=== PATIENT | female | born 1970 | race Two or more races ===

== ENCOUNTER 2017-02-27 08:06 | Day surgery (SDC) | payer BC, MEDICAID ==
[2017-02-26 16:42] LABS: CHLORIDE,CL 106 mmol/L (98-110); SODIUM,NA 139 mmol/L (136-146)
[~2017-02-27 08:06] MED LIST: Fluorescein 5 ML Vial ONE; Octyl 2-Cyanoacrylate 1 Tube ONE; Sodium Chloride 0.9% 10 ML Syringe FLUSH PRN; Sodium Chloride 0.9% 2.5 ML Syringe FLUSH PRN; ceFAZolin 2 GM in Premix Bag 1 BAG IV ONE
[2017-02-27] MEDS: Lactated Ringers 1,000 ML IV SCH ×3 (08:24→22:14)
[2017-02-27] MEDS ORDERED: Propofol 200 MG/20 ML SDV ONE ×2 (08:44→11:44)
[2017-02-27] MEDS ORDERED: fentaNYL 100 MCG/2 ML SDV ONE (08:44)
[2017-02-27] MEDS ORDERED: Lidocaine 2% 5 ML SDV ONE (08:44)
[2017-02-27] MEDS ORDERED: Midazolam 1 MG/ML 2 ML SDV ONE (08:44)
[2017-02-27] MEDS ORDERED: Scopolamine 1.5 MG Transdermal Patch TRDERM PRN (09:01)
--- NOTE | 2017-02-27 09:02 | PCM.PREANE ---
Preanesthetic Assessment - Anesthesia/Transfusion/Family Hx Anesthesia History: Prior Anesthesia Reaction Type of Anesthesia Reaction: Excessive Nausea/Vomiting Other Type of Anesthesia Reaction Comment: "my mother has problems with N&V post anesthesia" Transfusion History: No Prior Transfusion(s) - Review of Systems General: No Symptoms Pulmonary: No Symptoms Cardiovascular: No Symptoms Gastrointestinal: No Symptoms Neurological: No Symptoms Other: Reports: None - Physical Assessment NPO Status Date: 02/26/17 NPO Status Time: 18:30 O2 Sat by Pulse Oximetry: 98 Respiratory Rate: 16 Vital Signs: Last Vital Signs Temp 36.1 C 02/27/17 08:23 Pulse 54 L 02/27/17 08:23 Resp 16 02/27/17 08:23 BP 138/70 02/27/17 08:23 Pulse Ox 98 02/27/17 08:23 Height: 1.6 m Weight: 84.822 kg ASA Class: 1 Mental Status: Alert & Oriented x3 Airway Class: Mallampati = 1 Dentition: Reports: Normal Dentition ROM/Head Extension: Full Lungs: Clear to Auscultation, Normal Respiratory Effort Cardiovascular: Regular Rate, Regular Rhythm - Lab Values: Laboratory Last Values WBC 5.24 K/uL (4.0-11.0) 02/26/17 16:00 RBC 4.12 M/uL (4.30-5.90) L 02/26/17 16:00 Hgb 12.7 g/dL (12.0-16.0) 02/26/17 16:00 Hct 38.3 % (36.0-46.0) 02/26/17 16:00 MCV 93.0 fL (80.0-98.0) 02/26/17 16:00 MCH 30.8 pg (27.0-32.0) 02/26/17 16:00 MCHC 33.2 g/dL (31.0-37.0) 02/26/17 16:00 RDW Std Deviation 50.6 fl (28.0-62.0) 02/26/17 16:00 RDW Coeff of Cuate 15 % (11.0-15.0) 02/26/17 16:00 Plt Count 256 K/uL (150-400) 02/26/17 16:00 MPV 10.90 fL (7.40-12.00) 02/26/17 16:00 Nucleated RBC % 0.0 /100WBC 02/26/17 16:00 Nucleated RBCs # 0 K/uL 02/26/17 16:00 Sodium 139 mmol/L (136-146) 02/26/17 16:00 Potassium 4.1 mmol/L (3.5-5.1) 02/26/17 16:00 Chloride 106 mmol/L (98-110) 02/26/17 16:00 Carbon Dioxide 28 mmol/L (21-31) 02/26/17 16:00 BUN 13 mg/dL (6.0-23.0) 02/26/17 16:00 Creatinine 0.7 mg/dL (0.6-1.5) 02/26/17 16:00 Est Cr Clr Drug Dosing 83.95 mL/min 02/26/17 16:00 Estimated GFR (MDRD) > 60.0 ml/min 02/26/17 16:00 Glucose 99 mg/dL (60-110) 02/26/17 16:00 Calcium 9.2 mg/dL (8.8-10.8) 02/26/17 16:00 HCG, Qual NEGATIVE (NEG) 02/26/17 16:00 Blood Type O POSITIVE 02/26/17 16:00 Antibody Screen NEGATIVE 02/26/17 16:00 - Allergies Allergies/Adverse Reactions: Allergies Allergy/AdvReac Type Severity Reaction Status Date / Time No Known Allergies Allergy Verified 02/24/17 08:22 - Anesthesia Plan Pre-Op Medication Ordered: Other (scop) - Acknowledgements Anesthesia Type Planned: General Anesthesia Pt an Appropriate Candidate for the Planned Anesthesia: Yes Alternatives and Risks of Anesthesia Discussed w Pt/Guardian: Yes Pt/Guardian Understands and Agrees with Anesthesia Plan: Yes PreAnesthesia Questionnaire Gastrointestinal History: Reports: Other (See Below) Other Gastrointestinal History: occasional heartburn Genitourinary History: Reports: None BUSINESS ANALYTICS MANAGER History: Reports: Dysfunctional Uterine Bleeding, Fibroids Neurological History: Reports: TIA Other Neuro History: "possible TIA" Psychiatric History: Reports: Anxiety, Depression Endocrine/Metabolic History: Reports: Obesity/BMI 30+ Hematologic History: Reports: Anemia - Past Surgical History Head Surgeries/Procedures: Reports: None Female Surgical History: Reports: D&C Other Female Surgeries/Procedures: hysteroscopy Musculoskeletal Surgical History: Reports: Shoulder Surgery Other Musculoskeletal Surgeries/Procedures:: rotator cuff repair - SUBSTANCE USE Smoking Status *Q: Never Smoker Recreational Drug Use History: No - HOME MEDS Home Medications: Home Meds Iron,Carbonyl/Vit C/Vit B12/Fa [Iron 100 Plus Tablet] 1 tab PO DAILY 02/24/17 [ History] - CURRENT (IN HOUSE) MEDS Current Meds: Current Medications Lactated Ringer's (Ringers, Lactated) 1,000 mls @ 125 mls/hr IV ASDIRECTED SHO Last Admin: 02/27/17 08:24 Dose: 125 mls/hr Sodium Chloride (Saline Flush) 10 ml FLUSH ASDIRECTED PRN PRN Reason: Keep Vein Open Sodium Chloride (Saline Flush) 2.5 ml FLUSH ASDIRECTED PRN PRN Reason: Keep Vein Open Discontinued Medications Fentanyl (Sublimaze) Confirm Administered Dose 300 mcg .ROUTE .STK-MED ONE Stop: 02/27/17 08:45 Fluorescein Sodium (Ak-Fluor) Confirm Administered Dose 5 ml .ROUTE .STK-MED ONE Stop: 02/27/17 07:28 Cefazolin Sodium/Dextrose 2 gm (/ Premix) 50 mls @ 100 mls/hr IV ONETIME ONE Stop: 02/26/17 15:46 Lidocaine (Xylocaine-Mpf 2%) Confirm Administered Dose 10 ml .ROUTE .STK-MED ONE Stop: 02/27/17 08:45 Midazolam HCl (Versed 1 Mg/Ml) Confirm Administered Dose 2 mg .ROUTE .STK-MED ONE Stop: 02/27/17 08:45 Octyl Cyanoacrylate (Dermabond Advance) Confirm Administered Dose 1 applic .ROUTE .STK-MED ONE Stop: 02/27/17 07:26 Propofol (Diprivan 20 Ml) Confirm Administered Dose 400 mg .ROUTE .STK-MED ONE Stop: 02/27/17 08:45
[2017-02-27] MEDS ORDERED: HYDROmorphone 2 MG/ML Syringe ONE (09:05)
[2017-02-27] MEDS ORDERED: Ondansetron 4 MG/2 ML SDV ONE ×2 (10:59→11:00)
[2017-02-27] MEDS ORDERED: Rocuronium 10 MG/ML 10 ML Syringe ONE (11:00)
[2017-02-27] MEDS ORDERED: Neostigmine Methylsulfate 1 MG/ML 5 ML Syringe ONE (11:00)
[2017-02-27] MEDS ORDERED: Ketorolac 30 MG/ML SDV ONE (11:00)
[2017-02-27] MEDS ORDERED: fentaNYL 100 MCG/2 ML SDV IVPUSH PRN (11:13)
[2017-02-27] MEDS ORDERED: HYDROmorphone 2 MG/ML Syringe IVPUSH ONE (11:13)
[2017-02-27] MEDS ORDERED: ePHEDrine 50 MG/ML SDV ONE (11:49)
[2017-02-27] MEDS ORDERED: Ketorolac 30 MG/ML SDV IVPUSH ONE (12:12)
[2017-02-27] MEDS ORDERED: Ketorolac 30 MG/ML SDV IVPUSH PRN (12:12)
[2017-02-27] MEDS ORDERED: Acetaminophen/oxyCODONE 325-5 MG Tab PO PRN (12:12)
[2017-02-27] MEDS ORDERED: Ondansetron 4 MG/2 ML SDV IVPUSH PRN (12:12)
[2017-02-27] MEDS ORDERED: Morphine 2 MG/ML Syringe IVPUSH PRN (12:12)
[2017-02-27] MEDS ORDERED: Morphine 4 MG/ML Syringe IVPUSH PRN (12:12)
[2017-02-27] MEDS ORDERED: Promethazine 25 MG/ML SDV IM PRN (12:12)
--- NOTE | 2017-02-27 12:17 | PCM.OPNOTE ---
- General Post-Op/Procedure Note Date of Surgery/Procedure: 02/27/17 Operative Procedure(s): TLG, Bilat. salpengectomy, Solyex TVT, and cystoscopy. Findings: Fibroid Uterus Pre Op Diagnosis: Bleeding ,Fibroid and NAKUL Post-Op Diagnosis: Same Anesthesia Technique: General ET Tube Primary Surgeon: Tommy Ha Vendor Management Associate: Yi Travis EBL in mLs: 75 Complications: None Condition: Good
--- NOTE | 2017-02-27 13:18 | PCM.POSTAN ---
POST ANESTHESIA ASSESSMENT - MENTAL STATUS Mental Status: Alert, Oriented - RESPIRATORY Respiratory Status: Respiratory Rate WNL, Airway Patent, O2 Saturation Stable - CARDIOVASCULAR CV Status: Pulse Rate WNL, Blood Pressure Stable - GASTROINTESTINAL GI Status: No Symptoms - POST OP HYDRATION Hydration Status: Adequate & Stable
--- NOTE | 2017-02-27 13:26 | OR ---
SURGEON: Tommy Ha MD DATE OF PROCEDURE: 02/27/2017 PREOPERATIVE DIAGNOSES: Menometrorrhagia, fibroid uterus, stress urinary incontinence. POSTOPERATIVE DIAGNOSES: Menometrorrhagia, fibroid uterus, stress urinary incontinence. OPERATION PERFORMED: Total laparoscopic hysterectomy, laparoscopic bilateral salpingo-oophorectomy preserving both ovaries, and Solyx TVT cystoscopy. OUTSOLE PARAFFINER: ILIR Goodman ANESTHESIA: General endotracheal intubation, Jacinto Silva and Dr. Harden. ESTIMATED BLOOD LOSS: 75 to 100 mL. COMPLICATIONS: None. FINDINGS: Uterus about 14-week size with multiple fibroids. The rest of the abdominal finding is normal. INDICATION OF SURGERY: Gamaliel refer to the admit note. PROCEDURE IN DETAIL: The patient was brought to the OR, properly identified, and after adequate level of general anesthesia, the patient was placed in lithotomy position with an access to the abdomen and the bladder. The patient was prepped and draped in sterile fashion as usual. Ramachandran catheter was placed into the bladder for drainage and the Pritesh surgical colpotomizer manipulator was placed in place and the appropriate balloon is inflated. The operation shifted abdominally. Stab wound done beneath the umbilicus. The Veress needle was placed in the peritoneal cavity and that cavity insufflated with 3.5 L of carbon dioxide and using 5 mm trocar and 5 mm scope, Visiport technique is utilized to enter the abdomen. Once that done, the patient was placed in steep Trendelenburg and a 5 mm trocar placed in the right iliac fossa and 10-12 trocars in the left under direct vision. The finding is multiple fibroid as it was dictated before. The operation started by identifying the landmark of the pelvis and using the Chad Harmonic scapula, the superior pedicle coagulated and transected. The ovary preserved. Both tubes included with a specimen. The round ligament coagulated, transected from both sides and then the anterior leaf of the broad ligament dissected downward medially pushing the bladder completely away from the operative field and the surgeon could easily feel and palpate the internal ring of the manipulator. Then a skeletonization of the uterine vessel and each vessel at the level of the rings coagulated and transected using the CHAD-7 Harmonic scapula. Once this was done, then the vaginal mucosa entered using the Harmonic scapula in a circular manner detaching the cervix from its attachment to the vagina. Uterus, cervix, and both tubes with the fibroid was removed vaginally and pneumoperitoneum re-established by placing vaginal pack in the vagina. Thorough irrigation of the pelvis was done. Inspection of the entire operative field shows no oozing, no bleeding. We proceeded to close the vaginal cuff laparoscopically using 2-0 PDS interrupted sutures. Once that was finished, then the patient repositioned, the Ramachandran catheter was removed, and attention was paid to the anterior vaginal wall an inch and a half beneath the urethra and that was infiltrated with copious amount of normal saline and opened of the midline and dissected in a tunneling fashion to accommodate the Solyx TVT. Once that was done, then the Solyx TVT was placed in place and with a due amount of tension to elevate the urethrovesical angle and then the vaginal cuff was closed with 3-0 Vicryl interrupted, 3-0 Vicryl continuous interlocking for hemostasis. While we doing the TVT, we asked the anesthesiologist to give the patient fluorescein and then cystoscopy performed. The bladder was intact. Both ureteric orifices were seen with the dye coming from both of them. Thus, the patency of both ureters were verified. Satisfied with these findings, the instrument and hardware were retrieved from the abdomen and the vagina, and then multiple laparoscopic incisions closed in layers. Instrument and sponge counts were correct. The patient tolerated the procedure well, went to recovery room in stable general condition. KAMERON OSULLIVAN /[id number]
[2017-02-27] MEDS: Acetaminophen/oxyCODONE 325-5 MG Tab PO PRN ×2 (18:30→23:03)
[2017-02-28] MEDS: Acetaminophen/oxyCODONE 325-5 MG Tab PO PRN (05:36)
[2017-02-28 06:13] LABS: CHLORIDE,CL 106 mmol/L (98-110); SODIUM,NA 139 mmol/L (136-146)
--- NOTE | 2017-02-28 09:08 | PCM.SURGPN ---
- General Info Date of Service: 02/28/17 POD#: 1 Functional Status: Reports: Pain Controlled - Review of Systems General: Reports: No Symptoms HEENT: Reports: No Symptoms Pulmonary: Reports: No Symptoms Cardiovascular: Reports: No Symptoms Gastrointestinal: Reports: No Symptoms Genitourinary: Reports: No Symptoms Musculoskeletal: Reports: No Symptoms Skin: Reports: No Symptoms Neurological: Reports: No Symptoms Psychiatric: Reports: No Symptoms - Patient Data Vitals - Most Recent: Last Vital Signs Temp 36.7 C 02/28/17 08:45 Pulse 62 02/28/17 08:45 Resp 20 02/28/17 08:45 BP 152/60 H 02/28/17 08:45 Pulse Ox 98 02/28/17 08:45 Weight - Most Recent: 84.822 kg I&O - Last 24 Hours: Intake & Output 02/27/17 02/28/17 02/28/17 22:59 06:59 14:59 Intake Total 287 1950 Output Total 100 2400 Balance 187 -450 Lab Results Last 24 Hrs: Laboratory Results - last 24 hr 02/28/17 02/28/17 Range/Units 05:40 05:40 WBC 6.78 (4.0-11.0) K/uL RBC 3.32 L (4.30-5.90) M/uL Hgb 10.2 L (12.0-16.0) g/dL Hct 30.7 L (36.0-46.0) % MCV 92.5 (80.0-98.0) fL MCH 30.7 (27.0-32.0) pg MCHC 33.2 (31.0-37.0) g/dL RDW Std Deviation 49.4 (28.0-62.0) fl RDW Coeff of Cuate 15 (11.0-15.0) % Plt Count 184 (150-400) K/uL MPV 10.60 (7.40-12.00) fL Neut % (Auto) 68.3 (48.0-80.0) % Lymph % (Auto) 24.0 (16.0-40.0) % Bradford % (Auto) 6.8 (0.0-15.0) % Eos % (Auto) 0.6 (0.0-7.0) % Baso % (Auto) 0.3 (0.0-1.5) % Neut # (Auto) 4.6 (1.4-5.7) K/uL Lymph # (Auto) 1.6 (0.6-2.4) K/uL Bradford # (Auto) 0.5 (0.0-0.8) K/uL Eos # (Auto) 0.0 (0.0-0.7) K/uL Baso # (Auto) 0.0 (0.0-0.1) K/uL Nucleated RBC % 0.0 /100WBC Nucleated RBCs # 0 K/uL Sodium 139 (136-146) mmol/L Potassium 4.0 (3.5-5.1) mmol/L Chloride 106 (98-110) mmol/L Carbon Dioxide 27 (21-31) mmol/L BUN 6 (6.0-23.0) mg/dL Creatinine 0.6 (0.6-1.5) mg/dL Est Cr Clr Drug Dosing 97.95 mL/min Estimated GFR (MDRD) > 60.0 ml/min Glucose 82 (60-110) mg/dL Calcium 8.3 L (8.8-10.8) mg/dL Med Orders - Current: Current Medications Fentanyl (Sublimaze) 50 mcg IVPUSH Q5M PRN PRN Reason: Pain (severe 7-10) Stop: 02/28/17 11:13 Lactated Ringer's (Ringers, Lactated) 1,000 mls @ 125 mls/hr IV ASDIRECTED [facility] Last Admin: 02/27/17 22:14 Dose: 125 mls/hr Ketorolac Tromethamine (Toradol) 30 mg IVPUSH Q6H PRN PRN Reason: Pain (severe 7-10) Stop: 03/04/17 12:12 Morphine Sulfate (Morphine) 2 mg IVPUSH Q2H PRN PRN Reason: Pain (severe 7-10) Morphine Sulfate (Morphine) 4 mg IVPUSH Q2H PRN PRN Reason: Pain (severe 7-10) Ondansetron HCl (Zofran) 4 mg IVPUSH Q6H PRN PRN Reason: Nausea/Vomiting Oxycodone/Acetaminophen (Percocet 325-5 Mg) 1 tab PO Q4H PRN PRN Reason: Pain (moderate 4-6) Last Admin: 02/28/17 05:36 Dose: 1 tab Oxycodone/Acetaminophen (Percocet 325-5 Mg) 2 tab PO Q4H PRN PRN Reason: Pain (moderate 4-6) Promethazine HCl (Phenergan) 25 mg IM Q6H PRN PRN Reason: Nausea/Vomiting Scopolamine (Transderm-Scop) 1.5 mg TRDERM Q72H PRN PRN Reason: Nausea/Vomiting Last Admin: 02/27/17 09:12 Dose: 1.5 mg Sodium Chloride (Saline Flush) 10 ml FLUSH ASDIRECTED PRN PRN Reason: Keep Vein Open Sodium Chloride (Saline Flush) 2.5 ml FLUSH ASDIRECTED PRN PRN Reason: Keep Vein Open Discontinued Medications Ephedrine Sulfate (Ephedrine Sulfate) Confirm Administered Dose 50 mg .ROUTE .STK-MED ONE Stop: 02/27/17 11:50 Fentanyl (Sublimaze) Confirm Administered Dose 300 mcg .ROUTE .STK-MED ONE Stop: 02/27/17 08:45 Fluorescein Sodium (Ak-Fluor) Confirm Administered Dose 5 ml .ROUTE .STK-MED ONE Stop: 02/27/17 07:28 Glycopyrrolate () Confirm Administered Dose 1 mg .ROUTE .STK-MED ONE Stop: 02/27/17 11:01 Hydromorphone HCl (Dilaudid) Confirm Administered Dose 2 mg .ROUTE .STK-MED ONE Stop: 02/27/17 09:06 Hydromorphone HCl (Dilaudid) 0 mg IVPUSH ONETIME ONE Stop: 02/27/17 11:14 Last Admin: 02/27/17 13:04 Dose: Not Given Cefazolin Sodium/Dextrose 2 gm (/ Premix) 50 mls @ 100 mls/hr IV ONETIME ONE Stop: 02/26/17 15:46 Last Admin: 02/27/17 13:04 Dose: Not Given Ketorolac Tromethamine (Toradol) Confirm Administered Dose 30 mg .ROUTE .STK- MED ONE Stop: 02/27/17 11:01 Ketorolac Tromethamine (Toradol) 30 mg IVPUSH ONETIME ONE Stop: 02/27/17 12:13 Last Admin: 02/27/17 13:05 Dose: Not Given Lidocaine (Xylocaine-Mpf 2%) Confirm Administered Dose 10 ml .ROUTE .STK-MED ONE Stop: 02/27/17 08:45 Midazolam HCl (Versed 1 Mg/Ml) Confirm Administered Dose 2 mg .ROUTE .STK-MED ONE Stop: 02/27/17 08:45 Neostigmine Methylsulfate (Neostigmine) Confirm Administered Dose 5 mg .ROUTE .STK-MED ONE Stop: 02/27/17 11:01 Octyl Cyanoacrylate (Dermabond Advance) Confirm Administered Dose 1 applic .ROUTE .STK-MED ONE Stop: 02/27/17 07:26 Ondansetron HCl (Zofran) Confirm Administered Dose 4 mg .ROUTE .STK-MED ONE Stop: 02/27/17 11:00 Ondansetron HCl (Zofran) Confirm Administered Dose 4 mg .ROUTE .STK-MED ONE Stop: 02/27/17 11:01 Propofol (Diprivan 20 Ml) Confirm Administered Dose 400 mg .ROUTE .STK-MED ONE Stop: 02/27/17 08:45 Propofol (Diprivan 20 Ml) Confirm Administered Dose 200 mg .ROUTE .STK-MED ONE Stop: 02/27/17 11:45 Rocuronium [place] (Zemuron) Confirm Administered Dose 100 mg .ROUTE .STK-MED ONE Stop: 02/27/17 11:01 - Exam Wound/Incisions: Healing Well General: Alert, Oriented HEENT: Pupils Equal Neck: Supple Lungs: Clear to Auscultation, Normal Respiratory Effort Cardiovascular: Regular Rate, Regular Rhythm GI/Abdominal Exam: Normal Bowel Sounds, Soft, Non-Tender, No Organomegaly, No Distention, No Abnormal Bruit, No Mass, Pelvis Stable Extremities: Normal Inspection, Normal Range of Motion, Non-Tender, No Pedal Edema, Normal Capillary Refill Skin: Warm, Dry, Intact Neurological: No New Focal Deficit Psy/Mental Status: Alert, Normal Affect, Normal Mood - Problem List Review Problem List Initiated/Reviewed/Updated: Yes - My Orders Last 24 Hours: Active Orders 24 hr Category Date Time Status Patient Status [ADT] Routine ADT 02/27/17 12:12 Active Antiembolic Devices [RC] PER UNIT ROUTINE Care 02/27/17 12:13 Active Notify Provider Vital Signs [RC] ASDIRECTED Care 02/27/17 12:12 Active RT Incentive Spirometry [RC] Q2HWA Care 02/27/17 12:12 Active Up With Assistance [RC] PER UNIT ROUTINE Care 02/27/17 12:12 Active Up ad Marge [RC] PER UNIT ROUTINE Care 02/27/17 12:12 Active Vital Signs [RC] PER UNIT ROUTINE Care 02/27/17 12:12 Active Regular Diet [DIET] Diet 02/27/17 Dinner Active Acetaminophen/oxyCODONE [Percocet 325-5 MG] Med 02/27/17 12:12 Active 1 tab PO Q4H PRN Acetaminophen/oxyCODONE [Percocet 325-5 MG] Med 02/27/17 12:12 Active 2 tab PO Q4H PRN Ketorolac [Toradol] Med 02/27/17 12:12 Active 30 mg IVPUSH Q6H PRN Morphine Med 02/27/17 12:12 Active 2 mg IVPUSH Q2H PRN Morphine Med 02/27/17 12:12 Active 4 mg IVPUSH Q2H PRN Ondansetron [Zofran] Med 02/27/17 12:12 Active 4 mg IVPUSH Q6H PRN Promethazine [Phenergan] Med 02/27/17 12:12 Active 25 mg IM Q6H PRN Scopolamine [Transderm-Scop] Med 02/27/17 09:01 Active 1.5 mg TRDERM Q72H PRN fentaNYL [Sublimaze] Med 02/27/17 11:13 Active 50 mcg IVPUSH Q5M PRN Peripheral IV Discontinue [OM.PC] Routine Oth 02/27/17 12:12 Ordered Sequential Compression Device [OM.PC] Per Unit Routine Oth 02/27/17 12:12 Ordered Resuscitation Status Routine Resus Stat 02/27/17 12:12 Ordered Medication Orders Fentanyl (Sublimaze) 50 mcg IVPUSH Q5M PRN PRN Reason: Pain (severe 7-10) Stop: 02/28/17 11:13 Lactated Ringer's (Ringers, Lactated) 1,000 mls @ 125 mls/hr IV ASDIRECTED SHO Last Admin: 02/27/17 22:14 Dose: 125 mls/hr Infusion: 02/27/17 21:47 Dose: 125 mls/hr Admin: 02/27/17 13:47 Dose: 125 mls/hr Infusion: 02/27/17 13:47 Dose: 125 mls/hr Admin: 02/27/17 08:24 Dose: 125 mls/hr Ketorolac Tromethamine (Toradol) 30 mg IVPUSH Q6H PRN PRN Reason: Pain (severe 7-10) Stop: 03/04/17 12:12 Morphine Sulfate (Morphine) 2 mg IVPUSH Q2H PRN PRN Reason: Pain (severe 7-10) Morphine Sulfate (Morphine) 4 mg IVPUSH Q2H PRN PRN Reason: Pain (severe 7-10) Ondansetron HCl (Zofran) 4 mg IVPUSH Q6H PRN PRN Reason: Nausea/Vomiting Oxycodone/Acetaminophen (Percocet 325-5 Mg) 1 tab PO Q4H PRN PRN Reason: Pain (moderate 4-6) Last Admin: 02/28/17 05:36 Dose: 1 tab Admin: 02/27/17 23:03 Dose: 1 tab Admin: 02/27/17 18:30 Dose: 1 tab Oxycodone/Acetaminophen (Percocet 325-5 Mg) 2 tab PO Q4H PRN PRN Reason: Pain (moderate 4-6) Promethazine HCl (Phenergan) 25 mg IM Q6H PRN PRN Reason: Nausea/Vomiting Scopolamine (Transderm-Scop) 1.5 mg TRDERM Q72H PRN PRN Reason: Nausea/Vomiting Last Admin: 02/27/17 09:12 Dose: 1.5 mg Sodium Chloride (Saline Flush) 10 ml FLUSH ASDIRECTED PRN PRN Reason: Keep Vein Open Sodium Chloride (Saline Flush) 2.5 ml FLUSH ASDIRECTED PRN PRN Reason: Keep Vein Open - Assessment Assessment (Free Text/Narrative):: Status post laparoscopic hysterectomy and TVT postoperative day #1 the patient is doing well she is nonbleeding and sinus is stable and have lab work is stable - Plan Plan (Free Text/Narrative):: She will be sent home today the pulse hysterectomy instruction is given the patient is given a prescription for Percocet 7.5/325 for pain to take when necessary there is no restriction on her diet she is to come to the office 1 week of discharge for postoperative visit
--- NOTE | 2017-02-28 12:41 | PCM48HPAN ---
Post Anesthesia Note - EVALUATION WITHIN 48HRS OF ANESTHETIC Vital Signs in Normal Range: Yes Patient Participated in Evaluation: Yes Respiratory Function Stable: Yes Airway Patent: Yes Cardiovascular Function Stable: Yes Hydration Status Stable: Yes Pain Control Satisfactory: Yes Nausea and Vomiting Control Satisfactory: Yes Mental Status Recovered: Yes
== END 2017-02-28 11:51 | disposition home or self-care (01) ==
LOC: MW.SDS 08:06 → MW.MS 12:12 → MW.SDS 02-28 11:51
PROVIDERS: ATTEND Obstetrics & Gynecology
DX: D25.9 Leiomyoma of uterus, unspecified (principal); N39.3 Stress incontinence (female) (male); Z79.899 Other long term (current) drug therapy
CPT/HCPCS: 36415; 57288; 58571; 80048; 84703; 85025; 85027; 86850; 86900; 86901; A9270; J1170; J1885; J2250; J2405; J3010; J7120; 00840; 88309; C1781; J2704

== ENCOUNTER 2019-02-26 19:16 | Emergency (ER) | payer BC, MEDICAID | END 2019-02-26 19:21 | disposition left against medical advice (07) | LOC: MW.ED 19:16 | DX: Z53.21 Procedure and treatment not carried out due to patient leaving prior to being seen by health care provider (principal) ==

== ENCOUNTER 2019-02-27 18:52 | Emergency (ER) | payer SELFPAY ==
[2019-02-27] MEDS ORDERED: Albuterol/Ipratropium 3.0-0.5 MG/3 ML Neb Soln NEB ONE (19:51)
--- NOTE | 2019-02-27 19:55 | EDM.PDOC ---
ED HPI GENERAL MEDICAL PROBLEM - General Chief Complaint: Respiratory Problem Stated Complaint: COUGHING Time Seen by Provider: 02/27/19 19:47 - History of Present Illness INITIAL COMMENTS - FREE TEXT/NARRATIVE: HISTORY AND PHYSICAL: History of present illness: The patient is a 48-year-old female with no pulmonary history and who does not smoke cigarettes and also did not get her flu shot this year and presents with 6 days of fevers at home which were subjective cough productive of some yellow phlegm and congestion. She says that she has been coughing so hard that her sides are hurting her. She has no abdominal pain nausea vomiting or diarrhea. She is not short of breath but she says that oftentimes she will start coughing and she cannot stop and then she feels like she can't catch her breath. She has used [id number] Robitussin and TheraFlu and is here for evaluation. She is eating and drinking normally. She says she is here working and lives in [facility]. The patient denies as she said that she had a "procedure" and she cannot get anymore Review of systems: As per history of present illness and below otherwise all systems reviewed and negative. Past medical history: As per history of present illness and as reviewed below otherwise noncontributory. Surgical history: As per history of present illness and as reviewed below otherwise noncontributory. Social history: No reported history of drug or alcohol abuse. Family history: As per history of present illness and as reviewed below otherwise noncontributory. Physical exam: General: Well-developed well-nourished overweight female who is nontoxic and vital signs are noted by me. She is speaking clearly without breathlessness but throughout the course of my evaluation she will have a spastic dry cough. No cervical adenopathy or nuchal rigidity HEENT: Atraumatic, normocephalic, pupils reactive, negative for conjunctival pallor or scleral icterus, mucous membranes moist, throat clear, neck supple, nontender, trachea midline. Lungs: Clear to auscultation with coarse breath sounds scattered throughout and diminished air exchange but no stridor or work of breathing, breath sounds equal bilaterally, chest nontender. Heart: S1S2, regular rate and rhythm no overt murmurs Abdomen: Soft, nondistended, nontender. NABS Pelvis: Deferred Genitourinary: Deferred. Rectal: Deferred. Extremities: Atraumatic, negative for cords or calf pain. Neurovascular unremarkable. Neuro: Awake, alert, oriented. Cranial nerves II through XII unremarkable. Cerebellum unremarkable. Motor and sensory unremarkable throughout. Exam nonfocal. Diagnostics: Chest x-ray influenza Therapeutics: Duo neb spacer and teaching Impression: Acute bronchitis Definitive disposition and diagnosis as appropriate pending reevaluation and review of above. Generalized Pain Score (Numeric/FACES): 8 - Related Data Allergies Allergy/AdvReac Type Severity Reaction Status Date / Time No Known Allergies Allergy Verified 02/27/19 19:31 Home Meds: Home Meds Iron,Carbonyl/Vit C/Vit B12/Fa [Iron 100 Plus Tablet] 1 tab PO DAILY 02/24/17 [ History] Past Medical History Gastrointestinal History: Reports: Other (See Below) Other Gastrointestinal History: occasional heartburn Genitourinary History: Reports: None SWEEP MOLDER History: Reports: Dysfunctional Uterine Bleeding, Fibroids Neurological History: Reports: TIA Other Neuro History: "possible TIA" Psychiatric History: Reports: Anxiety, Depression Endocrine/Metabolic History: Reports: Obesity/BMI 30+ Hematologic History: Reports: Anemia - Infectious Disease History Infectious Disease History: Reports: Chicken Pox - Past Surgical History Head Surgeries/Procedures: Reports: None Female Surgical History: Reports: D&C Other Female Surgeries/Procedures: hysteroscopy Musculoskeletal Surgical History: Reports: Shoulder Surgery Other Musculoskeletal Surgeries/Procedures:: rotator cuff repair Social & Family History - Family History Family Medical History: Noncontributory - Tobacco Use Smoking Status *Q: Never Smoker - Caffeine Use Caffeine Use: Reports: Tea - Recreational Drug Use Recreational Drug Use: No ED ROS GENERAL - Review of Systems Review Of Systems: ROS reveals no pertinent complaints other than HPI. ED EXAM, GENERAL - Physical Exam Exam: See Below (see Dictation) Course - Vital Signs Last Recorded V/S: Last Vital Signs Temp 36.6 C 02/27/19 19:31 Pulse 79 02/27/19 19:31 Resp 18 02/27/19 19:31 BP 158/72 H 02/27/19 19:31 Pulse Ox 94 L 02/27/19 19:31 - Orders/Labs/Meds Orders: Active Orders 24 hr Category Date Time Status Communication Order [RC] STAT Care 02/27/19 20:42 Ordered RT Aerosol Therapy [RC] ASDIRECTED Care 02/27/19 19:51 Active Meds: Medications Discontinued Medications Generic Name Dose Route Start Last Admin Trade Name Geoffrey PRN Reason Stop Dose Admin Albuterol/Ipratropium 3 ml 02/27/19 19:51 02/27/19 19:57 Duoneb 3.0-0.5 Mg/3 Ml NEB 02/27/19 19:52 3 ml ONETIME ONE Administration Departure - Departure Time of Disposition: 20:45 Disposition: Home, Self-Care 01 Condition: Good Clinical Impression: Acute bronchitis Qualifiers: Bronchitis organism: unspecified organism Qualified Code(s): J20.9 - Acute bronchitis, unspecified - Discharge Information Referrals: PCP,Not In Area [Primary Care Provider] - Forms: ED Department Discharge Additional Instructions: The following information is given to patients seen in the emergency department who are being discharged to home. This information is to outline your options for follow-up care. We provide all patients seen in our emergency department with a follow-up referral. The need for follow-up, as well as the timing and circumstances, are variable depending upon the specifics of your emergency department visit. If you don't have a primary care physician on staff, we will provide you with a referral. We always advise you to contact your personal physician following an emergency department visit to inform them of the circumstance of the visit and for follow-up with them and/or the need for any referrals to a consulting specialist. The emergency department will also refer you to a specialist when appropriate. This referral assures that you have the opportunity for followup care with a specialist. All of these measure are taken in an effort to provide you with optimal care, which includes your followup. Under all circumstances we always encourage you to contact your private physician who remains a resource for coordinating your care. When calling for followup care, please make the office aware that this follow-up is from your recent emergency room visit. If for any reason you are refused follow-up, please contact the [facility] emergency department at and ask to speak to the emergency department charge nurse. [facility]- Internal Medicine and Family [address] [address] Push hydration and use medications as prescribed. Please call and schedule follow-up appointment in the clinic for further care and evaluation and return to ER as needed and as discussed. - My Orders Last 24 Hours: My Active Orders 02/27/19 19:51 RT Aerosol Therapy [RC] ASDIRECTED 02/27/19 20:42 Communication Order [RC] STAT - Assessment/Plan Last 24 Hours: My Active Orders 02/27/19 19:51 RT Aerosol Therapy [RC] ASDIRECTED 02/27/19 20:42 Communication Order [RC] STAT
--- NOTE | 2019-02-27 20:43 | CR ---
INDICATION: Dyspnea COMPARISON: None available. FINDINGS: PA and lateral views of the chest were obtained. The lungs are clear. No focal or diffuse infiltrates are present. The heart is normal in size. The mediastinum is normal in appearance. The osseous structures are normal in appearance for the patient`s age. IMPRESSION: Normal chest 2 views. Dictated by Colin Nieves MD @ Feb 27 2019 8:40PM Signed by Dr. Colin Nieves @ Feb 27 2019 8:41PM
== END 2019-02-27 21:00 | disposition home or self-care (01) ==
LOC: MW.ED 18:52
DX: J20.9 Acute bronchitis, unspecified (principal); E66.9 Obesity, unspecified; D64.9 Anemia, unspecified; Z68.33 Body mass index [BMI] 33.0-33.9, adult; Z79.899 Other long term (current) drug therapy; Z86.718 Personal history of other venous thrombosis and embolism
CPT/HCPCS: 71046; 71046-26; 87804; 94640; 99284-25; J7620-GY